=== PATIENT | female | born 1985 | race Hispanic/Latino ===

== ENCOUNTER 2022-06-19 02:24 | Emergency (ER) | payer OTHER ==
[~2022-06-19] VITALS: Ht 165.1 cm; Wt 81.6 kg
[~2022-06-19 02:24] MED LIST: PRENATAL VITAM1 EAC7 PO
[2022-06-19] MEDS ORDERED: ONDANSETRON ODT8 MG PO (04:32)
[2022-06-19] MEDS ORDERED: TAMIFLU75 MG PO (04:32)
[2022-06-19] MEDS ORDERED: CARAFATE1 GM PO (04:32)
== END 2022-06-19 05:10 | disposition home or self-care (01) ==
LOC: ED 02:24
DX: K29.70 Gastritis, unspecified, without bleeding (principal); J10.1 Influenza due to other identified influenza virus with other respiratory manifestations; Z87.891 Personal history of nicotine dependence; Z20.822 Contact with and (suspected) exposure to COVID-19
CPT/HCPCS: 36415; 80053; 83690; 87502; 96374; 96375; 99284-25; A9270; C9113; J2405; U0003

== ENCOUNTER 2022-11-07 18:38 | Emergency (ER) | payer OTHER ==
[~2022-11-07] VITALS: Ht 165.1 cm; Wt 77.8 kg
[~2022-11-07 18:38] MED LIST changes: +CARAFATE1 GM PO; +ONDANSETRON ODT8 MG PO; +TAMIFLU75 MG PO
[2022-11-07] MEDS ORDERED: PEPCID20 MG PO (22:26)
[2022-11-07 22:41] VITALS: BP 108/68
--- NOTE | 2022-11-08 21:29 | EKG ---
[facility] [address] [facility] [place] [address] Signed Normal sinus rhythm Normal ECG No previous ECGs available Confirmed by Ale Azul MD () on 11/08/2022 9:29:32 PM Electronically Signed By: ALE AZUL MD 11/08/222128 PATIENT NAME: MANDO STRANGE Electrocardiogram DATE OF : 89 PHYSICIAN: ALE AZUL MD REPORT #: [id number] REPORT IS CONFIDENTIAL AND NOT TO BE RELEASED WITHOUT AUTHORIZATION
== END 2022-11-07 22:42 | disposition home or self-care (01) ==
LOC: ED 18:38
DX: K21.9 Gastro-esophageal reflux disease without esophagitis (principal); Z87.891 Personal history of nicotine dependence
CPT/HCPCS: 36415; 71045; 80053; 81003; 84484; 84703; 85025; 85379; 85610; 85730; 93005; 93010; 96361; 96374; 99285-25; J7121